=== PATIENT | female | born 1950 | race Caucasian/White ===

== ENCOUNTER 2019-08-27 15:04 | Emergency (ER) | payer MEDICARE ==
--- NOTE | 2019-08-27 15:49 | XRAY ---
Indication: Pain following injury. Comparison: None 3 nonweightbearing views left foot demonstrates tiny heel spurs and a 8 mm well-circumscribed curvilinear calcification anterosuperior to the talus either degenerative versus old injury. No other bony, articular, or soft tissue abnormalities.
--- NOTE | 2019-08-27 15:49 | XRAY ---
Indication: Pain following injury. Comparison: None 3 view left ankle demonstrates tiny heel spurs and a 8 mm well-circumscribed curvilinear calcification anterosuperior to the talus either degenerative versus old injury. No other bony, articular, or soft tissue abnormalities.
[2019-08-27] MEDS ORDERED: TORAdol 30 mg Injection IM ONE (15:53)
[2019-08-27] MEDS ORDERED: TORAdol 30 mg Injection ONE (15:57)
--- NOTE | 2019-08-27 16:21 | ERPHSYRPT ---
- History of Present Illness Time Seen by Provider: 08/27/19 15:20 Source: patient Exam Limitations: no limitations Patient Subjective Stated Complaint: Left foot injury Triage Nursing Assessment: Patient brought back to ED via w/c and transferred to bed with assist of 1. Patient A+O X3. Patient's skin pink, warm and dry. Patient complains of left foot pain after tripping down a step. Patient has small bruise noted to middle of top of foot. Patient complains of constant aching pain 5/10. Pulses noted. Physician History: Patient is a 69-year-old female presents to our ED with complaints of pain to the left foot. Patient states she mis-injury occurred just prior to arrival. Pain described as an ache that is localized to the dorsum of the left foot. Pain worse with movement and palpation. Pain also exacerbated with weightbearing. Pain improved with rest. Patient initially declined pain medication. No other injuries reported. Patient is otherwise healthy. Patient voices no other complaints at this time. Patient's injury was mechanical. It was not associated with any sort of neuro or cardiovascular symptomology. No associated chest pain or shortness of breath. No dizziness. No weakness. Method of Injury: twisted Occurred: just prior to arrival Quality: intermittent Severity of Pain-Max: moderate Severity of Pain-Current: none Lower Extremities Pain: foot: left Modifying Factors: Improves With: movement Associated Symptoms: none, No dizzy, No fainted, No seizure, No popping sensation Allergies/Adverse Reactions: No Known Drug Allergies Allergy (Verified 08/27/19 15:19) Home Medications: No Reportable Medications [No Reported Medications] 08/27/19 [History] Hx Tetanus, Diphtheria Vaccination/Date Given: Yes Hx Influenza Vaccination/Date Given: Yes Hx Pneumococcal Vaccination/Date Given: Yes Immunizations Up to Date: Yes Travel Risk - International Travel Have you traveled outside of the country in past 3 weeks: No Have you or anyone close to you been diagnosed with or: No Do your reside in a community with a known COVID-19 case?: Yes If Yes where:: [facility] - Coronavirus Screening Has patient experienced Coronavirus symptoms: No - Review of Systems Constitutional: No Symptoms, No Fever, No Chills Eyes: No Symptoms Ears, Nose, & Throat: No Symptoms Respiratory: No Symptoms, No Cough, No Dyspnea Cardiac: No Symptoms, No Chest Pain, No Edema, No Syncope Abdominal/Gastrointestinal: No Symptoms, No Abdominal Pain, No Nausea, No Vomiting, No Diarrhea Genitourinary Symptoms: No Symptoms, No Dysuria Musculoskeletal: No Symptoms, Injury, No Back Pain, No Neck Pain Skin: No Symptoms, No Rash Neurological: No Symptoms, No Dizziness, No Focal Weakness, No Headache, No Sensory Changes Psychological: No Symptoms Endocrine: No Symptoms Hematologic/Lymphatic: No Symptoms Immunological/Allergic: No Symptoms All Other Systems: Reviewed and Negative - Past Medical History Pertinent Past Medical History: Yes Neurological History: No Pertinent History ENT History: Other Cardiac History: No Pertinent History Respiratory History: No Pertinent History Endocrine Medical History: No Pertinent History Musculoskeletal History: No Pertinent History GI Medical History: No Pertinent History History: No Pertinent History Psycho-Social History: No Pertinent History Female Reproductive Disorders: No Pertinent History Other Medical History: Pt states she passed out at home. she is wearing a recorder in her chest. She sees Dr. Cook. Pt is hard of hearing and wears bilateral hearing aids. - Past Surgical History Past Surgical History: No Neuro Surgical History: No Pertinent History Cardiac: No Pertinent History, Other Respiratory: No Pertinent History Gastrointestinal: No Pertinent History Genitourinary: No Pertinent History Musculoskeletal: No Pertinent History Female Surgical History: Other Other Surgical History: Pt has had a lumpectomy and a skin cancer removed from her left arm. - Social History Smoking Status: Former smoker Exposure to second hand smoke: No Drug Use: none Patient Lives Alone: No - Nursing Vital Signs Nursing Vital Signs: Initial Vital Signs Temperature 98.0 F 08/27/19 15:12 Pulse Rate 82 08/27/19 15:12 Respiratory Rate 18 08/27/19 15:12 Blood Pressure 118/65 08/27/19 15:12 O2 Sat by Pulse Oximetry 97 08/27/19 15:12 Pain Scale Pain Intensity 5 - Physical Exam General Appearance: alert Eyes, Ears, Nose, Throat Exam: moist mucous membranes Neck Exam: non-tender, supple Cardiovascular/Respiratory Exam: chest non-tender, normal breath sounds, regular rate/rhythm, no respiratory distress Gastrointestinal/Abdominal Exam: non-tender, guarding Back Exam: normal inspection, No vertebral tenderness Hips Exam: bilateral: non-tender, normal inspection, normal range of motion, no evidence of injury Legs Exam: bilateral leg: non-tender, normal inspection, normal range of motion , no evidence of injury Knees Exam: bilateral knee: non-tender, normal inspection, normal range of motion, no evidence of injury Ankle Exam: left ankle: normal inspection, normal range of motion, no evidence of injury, bone tenderness Foot Exam: left foot: ecchymosis, limited range of motion (Range of motion limited due to pain.), pain, soft tissue tenderness, swelling, other (No open or draining lesions. PT DP pulses are palpable. Cap refill less than 2 seconds. Compartments are soft. No subungual hematoma.) Neuro/Tendon Exam: normal sensation, normal motor functions Mental Status Exam: alert, oriented x 3, cooperative Skin Exam: normal color, warm, dry SpO2 Interpretation: normal SpO2: 97 O2 Delivery: Room Air - Course Nursing assessment & vital signs reviewed: No - Radiology Exams Foot X-ray Interpretation: Teleradiologist Report (X-ray foot reveals tiny heel spurs , 8 mm well-circumscribed curvilinear calcification anterior superior to the talus either degenerative versus old injury. No other bony articular soft tissue abnormalities.) Ankle X-ray Interpretation: Teleradiologist Report (Left ankle x-ray demonstrates tiny heel spurs, 8 mm well-circumscribed curvilinear calcification anterior superior to the talus with degenerative versus old injury. No other bony articular or soft tissue abnormalities identified.) Ordered Tests: Active Orders 24 hr Category Date Time Status ANKLE (3 VIEWS) Stat Exams 08/27/19 15:18 Completed FOOT (MINIMUM 3 VIEWS) Stat Exams 08/27/19 15:16 Completed Medication Summary Discontinued Medications Generic Name Dose Route Start Last Admin Trade Name Maykel PRN Reason Stop Dose Admin Ketorolac Tromethamine 30 mg 08/27/19 15:53 08/27/19 15:59 Toradol 30 Mg Injection IM 08/27/19 15:54 30 mg STAT ONE Administration Ketorolac Tromethamine Confirm 08/27/19 15:57 Toradol 30 Mg Injection Administered 08/27/19 15:58 Dose 30 mg .ROUTE .STK-MED ONE - Progress Progress: improved Progress Note: 08/27/19 16:25 Patient initially declined pain medication. Patient then requested pain medication. IM Toradol administered. Patient feels much better. X-rays negative for acute pathology. No fractures or dislocations. Patient's left foot primarily has a left contusion. Possible sprain. Will discharge home. Patient declined crutches. Patient agrees to follow-up with a primary care doctor within 48 hours for reevaluation. Counseled pt/family regarding: diagnosis, need for follow-up, rad results - Departure Departure Disposition: Home Clinical Impression: Foot contusion, Foot sprain Condition: Stable Critical Care Time: No Referrals: JACINDA LARKIN [Primary Care Provider] - Instructions: Foot Sprain (DC), Contusion (DC) Additional Instructions: Discharge/Care Plan RAOUL SCHUSTER was seen on 08/27/19 in the Emergency Room. The patient was counseled regarding Diagnosis,Lab results, Imaging studies, need for follow up and when to return to the Emergency Room. Prescriptions given: Discharge Note I have spoken with the patient and/or caregivers. I have explained the patient' s condition, diagnosis and treatment plan based on the information available to me at this time. I have answered the patient's and/or caregiver's questions and addressed any concerns. The patient and/or caregivers have as good understanding of the patient's diagnosis, condition and treatment plan as can be expected at this point. The vital signs have been stable. The patient's condition is stable and appropriate for discharge from the emergency department. The patient will pursue further outpatient evaluation with the primary care physician or other designated or consulting physician as outlined in the discharge instructions. The patient and/or caregivers are agreeable to this plan of care and follow-up instructions have been explained in detail. The patient and/or caregivers have received these instruction. The patient/and or caregivers are aware that any significant change in condition or worsening of symptoms should prompt an immediate return to this or the closest emergency department or call 911.
[2019-08-27 16:27] VITALS: BP 131/75; PULSE 70; O2SAT 97
== END 2019-08-27 16:35 | disposition home or self-care (01) ==
LOC: ED 15:04
DX: S90.32XA Contusion of left foot, initial encounter (principal); S93.602A Unspecified sprain of left foot, initial encounter; W01.198A Fall on same level from slipping, tripping and stumbling with subsequent striking against other object, initial encounter
CPT/HCPCS: 73610; 73630; 96372; 99284; J1885

== ENCOUNTER 2022-08-08 15:04 | Emergency (ER) | payer MEDICARE ==
--- NOTE | 2022-08-08 15:10 | ERPHSYRPT ---
- History of Present Illness Time Seen by Provider: 08/08/22 15:10 Historian: patient Exam Limitations: no limitations Physician History: This is a 71-year-old white female patient who is status post right knee replacement approximately 2 weeks ago and postoperatively was placed on Percocet pain medicine. That is a new medication for her. In addition, she has not been walking and ambulating as well as often as she normally does. Patient denies abdominal pain but she does complain of constipation and rectal pressure for the last 2 to 3 days. She has tried stool softeners, MiraLAX and prune juice since yesterday without much effect. Patient denies chest pain and she denies shortness of breath. Timing/Duration: day(s) (2 to 3 days) Activities at Onset: none Quality: pressure (Rectal but not abdominal) Pain Radiation: no radiation Severity of Pain-Max: none Severity of Pain-Current: none Modifying Factors: Improves With: nothing Associated Symptoms: other (Constipation and rectal pressure) Previous symptoms: no prior history Allergies/Adverse Reactions: sulfamethoxazole [From Bactrim] Allergy (Verified 08/08/22 15:05) trimethoprim [From Bactrim] Allergy (Verified 08/08/22 15:05) Home Medications: No Reportable Medications [No Reported Medications] 08/27/19 [History] Hx Tetanus, Diphtheria Vaccination/Date Given: Yes Hx Influenza Vaccination/Date Given: Yes Hx Pneumococcal Vaccination/Date Given: Yes Travel Risk - International Travel Have you traveled outside of the country in past 3 weeks: No - Coronavirus Screening Are you exhibiting any of the following symptoms?: No Close contact with a COVID-19 positive Pt in past 14-21 Days: No - Review of Systems Constitutional: No Symptoms Eyes: No Symptoms Ears, Nose, & Throat: No Symptoms Respiratory: No Symptoms Cardiac: No Symptoms Abdominal/Gastrointestinal: Constipation, No Abdominal Pain, No Nausea, No Vomiting Genitourinary Symptoms: No Symptoms Musculoskeletal: No Symptoms Skin: No Symptoms Neurological: No Symptoms Psychological: No Symptoms Endocrine: No Symptoms Hematologic/Lymphatic: No Symptoms Immunological/Allergic: No Symptoms All Other Systems: Reviewed and Negative - Past Medical History Pertinent Past Medical History: Yes Neurological History: No Pertinent History ENT History: Other Cardiac History: No Pertinent History Respiratory History: No Pertinent History Endocrine Medical History: No Pertinent History Musculoskeletal History: Osteoarthritis GI Medical History: No Pertinent History History: No Pertinent History Psycho-Social History: No Pertinent History Female Reproductive Disorders: No Pertinent History Other Medical History: CAROTID BLOCKAGES. - Past Surgical History Past Surgical History: No Neuro Surgical History: No Pertinent History Cardiac: No Pertinent History, Other Respiratory: No Pertinent History Gastrointestinal: No Pertinent History Genitourinary: No Pertinent History Musculoskeletal: No Pertinent History Female Surgical History: Other Other Surgical History: Pt has had a lumpectomy and a skin cancer removed from her left arm. - Social History Smoking Status: Former smoker Exposure to second hand smoke: No Drug Use: none Patient Lives Alone: No - Nursing Vital Signs Nursing Vital Signs: Initial Vital Signs Temperature 97.6 F 08/08/22 15:05 Pulse Rate 74 08/08/22 15:05 Respiratory Rate 18 08/08/22 15:05 Blood Pressure 172/131 08/08/22 15:05 O2 Sat by Pulse Oximetry 97 08/08/22 15:05 Pain Scale Pain Intensity 8 - Physical Exam General Appearance: no apparent distress, alert, anxiety Eye Exam: PERRL/EOMI, eyes nml inspection Ears, Nose, Throat Exam: normal ENT inspection, moist mucous membranes Neck Exam: normal inspection, non-tender, supple, full range of motion Respiratory Exam: normal breath sounds, lungs clear, airway intact, No chest tenderness, No respiratory distress Cardiovascular Exam: regular rate/rhythm, normal heart sounds, normal peripheral pulses Gastrointestinal/Abdomen Exam: soft, normal bowel sounds, No tenderness Pelvic Exam: not done Rectal Exam: not done Back Exam: normal inspection, normal range of motion, No CVA tenderness Extremity Exam: normal inspection, normal range of motion, No pelvis stable Neurologic Exam: alert, oriented x 3, cooperative, 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 I reviewed the impression. This film shows no evidence of bowel obstruction. There is moderate diffuse colonic debris including in the rectum. The patient's medical issue is 1 of low complexity. The level of complexity and the work-up performed was based on review of the patient's past medical history, review of the patient's medication list, review of the patient's drug allergy list, history of present illness and findings on physical examination. The above-stated findings were noted on the KUB that was performed. No laboratory studies are necessary. We will provide the patient with a soapsuds enema in the emergency department. Assuming she has a good response to this intervention, we will discharge the patient to home with instructions to stop her Percocet pain medicine and to use Tylenol for pain control, increase her activity and ambulating, use MiraLAX, prune juice and stool softeners. She is also to follow-up with her primary care provider and orthopedic surgeon tomorrow, 08/09/2022 to make arrangements for follow-up appointment in the next few days. 08/08/22 18:52 Patient had excellent results with the soapsuds enema. She has significantly less rectal pressure. Counseled pt/family regarding: diagnosis, need for follow-up, rad results Medical Desision Making - Independent Historian Additional History obtained from: Child - Diagnostic Testing Radiological Interpretation: Reviewed by me, Teleradiologist Report - Risk of complications Low Risk: Low risk of morbidity from additional dx testing or treatment - Departure Departure Disposition: Home Clinical Impression: Constipation Condition: Stable Critical Care Time: No Referrals: TRACE WALLACE [Primary Care Provider] - Follow up/PCP as directed Additional Instructions: Clear liquids for 12 to 16 hours orally. May use fleets enema tomorrow morning rectally as directed on [id number] product. Continue using stool softeners, MiraLAX and consuming prune juice. Stop your oxycodone/narcotic pain medicine. Use plain Tylenol for pain control. Increase your activity.
--- NOTE | 2022-08-08 16:45 | XRAY ---
Indication: Constipation. Rectal pain. Comparison: None KUB demonstrates moderate diffuse scattered fecal debris including rectum. Previous cholecystotomy. 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
[2022-08-08 19:35] VITALS: BP 142/76; PULSE 70; O2SAT 94
== END 2022-08-08 19:43 | disposition home or self-care (01) ==
LOC: ED 15:04
DX: K59.00 Constipation, unspecified (principal); Z79.891 Long term (current) use of opiate analgesic
CPT/HCPCS: 74018; 99283

== ENCOUNTER 2022-08-12 13:59 | Emergency (ER) | payer MEDICARE ==
--- NOTE | 2022-08-12 14:02 | ERPHSYRPT ---
- History of Present Illness Time Seen by Provider: 08/12/22 14:02 Historian: patient, family (Daughter) Exam Limitations: no limitations Physician History: This is a 72-year-old white female patient of Dr. Saldana who is status post right knee replacement approximately 3 weeks ago. Postoperatively, the patient was placed on Percocet pain medication. Patient was seen in our emergency department on 08/08/2022 by me and was diagnosed with constipation with stool in the left colon and rectum without rectal impaction. This is based on the patient's history and findings on a KUB that was performed on that visit. She underwent a soapsuds enema on that day and had excellent response to her enema. Since her discharge from that visit, she has been taking MiraLAX, stool softeners as well as using prune juice and increasing her activity. She is still feeling as though there is rectal pain and pressure and has not been having normal bowel movements at this point in time. She denies chest pain. She denies shortness of breath. She has no fever. She takes no medications chronically. She has been off of her narcotic pain medicine. Timing/Duration: day(s) (Several) Activities at Onset: none Abdominal Pain Onset Location: other (Rectal pressure) Pain Radiation: no radiation Severity of Pain-Max: mild Severity of Pain-Current: mild Modifying Factors: Improves With: other Associated Symptoms: other (Constipation and rectal pressure), No diarrhea, No nausea, No vomiting Previous symptoms: same symptoms as today, recently seen, recently treated Allergies/Adverse Reactions: sulfamethoxazole [From Bactrim] Allergy (Verified 08/08/22 15:05) trimethoprim [From Bactrim] Allergy (Verified 08/08/22 15:05) Home Medications: Furosemide 20 mg [Lasix 20 mg] 20 mg PO DAILY 08/12/22 [History] Hx Tetanus, Diphtheria Vaccination/Date Given: Yes Hx Influenza Vaccination/Date Given: Yes Hx Pneumococcal Vaccination/Date Given: Yes Travel Risk - International Travel Have you traveled outside of the country in past 3 weeks: No - Coronavirus Screening Are you exhibiting any of the following symptoms?: No Close contact with a COVID-19 positive Pt in past 14-21 Days: No - Vaccine Status Have you recieved a Covid-19 vaccination: No - Past Medical History Pertinent Past Medical History: Yes Neurological History: No Pertinent History ENT History: Other Cardiac History: No Pertinent History Respiratory History: No Pertinent History Endocrine Medical History: No Pertinent History Musculoskeletal History: Osteoarthritis GI Medical History: No Pertinent History History: No Pertinent History Psycho-Social History: No Pertinent History Female Reproductive Disorders: No Pertinent History Other Medical History: CAROTID BLOCKAGES. - Past Surgical History Past Surgical History: No Neuro Surgical History: No Pertinent History Cardiac: No Pertinent History, Other Respiratory: No Pertinent History Gastrointestinal: No Pertinent History Genitourinary: No Pertinent History Musculoskeletal: No Pertinent History Female Surgical History: Other Other Surgical History: Pt has had a lumpectomy and a skin cancer removed from her left arm. - Social History Smoking Status: Former smoker Exposure to second hand smoke: No Drug Use: none Patient Lives Alone: No - Nursing Vital Signs Nursing Vital Signs: Initial Vital Signs Temperature 98.7 F 08/12/22 14:04 Pulse Rate 90 08/12/22 14:04 Respiratory Rate 22 08/12/22 14:04 Blood Pressure 154/86 08/12/22 14:04 O2 Sat by Pulse Oximetry 100 08/12/22 14:04 Pain Scale Pain Intensity 2 - Physical Exam General Appearance: no apparent distress, alert, anxiety Eye Exam: PERRL/EOMI, eyes nml inspection Ears, Nose, Throat Exam: normal ENT inspection, moist mucous membranes Neck Exam: normal inspection, non-tender, supple, full range of motion Respiratory Exam: normal breath sounds, lungs clear, airway intact, No chest tenderness, No respiratory distress Cardiovascular Exam: regular rate/rhythm, normal heart sounds, normal peripheral pulses Gastrointestinal/Abdomen Exam: soft, normal bowel sounds, No tenderness Pelvic Exam: not done Back Exam: normal inspection, normal range of motion, No CVA tenderness, No vertebral tenderness Extremity Exam: normal inspection, normal range of motion, pelvis stable Neurologic Exam: alert, oriented x 3, cooperative, escort patients II-XII nml as tested, normal mood/affect, nml cerebellar function, nml station & gait, sensation nml Skin Exam: normal color, warm, dry Lymphatic Exam: No adenopathy SpO2 Interpretation: normal O2 Delivery: Room Air - Course Nursing assessment & vital signs reviewed: Yes Ordered Tests: Active Orders 24 hr Category Date Time Status IV Insertion STAT Care 08/12/22 14:25 Active ABDOMEN AND PELVIS W/0 CONTRAS [CT] Stat Exams 08/12/22 14:25 Completed CBC W DIFF Stat Lab 08/12/22 14:28 Completed CMP Stat Lab 08/12/22 14:28 Completed UA W/RFX UR CULTURE Stat Lab 08/12/22 14:25 Ordered Medication Summary Discontinued Medications Generic Name Dose Route Start Last Admin Trade Name Andreaq PRN Reason Stop Dose Admin Methylprednisolone Sodium 0 mg 08/12/22 15:26 Succinate 40 mg/ Sterile Water IV 08/12/22 15:27 1 ml STAT STA Doxycycline Hyclate 100 mg 08/12/22 15:24 Doxycycline Hyclate 100 Mg Tablet PO 08/12/22 15:25 STAT ONE Sodium Chloride 1,000 mls @ 999 mls/hr 08/12/22 14:25 08/12/22 14:44 Sodium Chloride 0.9% 1000 Ml IV 08/12/22 15:25 999 mls/hr .Q1H1M STA Administration Sodium Chloride Confirm 08/12/22 14:43 Sodium Chloride 0.9% 1000 Ml Administered 08/12/22 14:44 Dose 1,000 mls @ ud .ROUTE .STK-MED ONE Metronidazole 500 mg 08/12/22 15:24 Metronidazole 500 Mg Tablet PO 08/12/22 15:25 STAT ONE Lab/Rad Data: Laboratory Result Diagrams 08/12/22 14:28 08/12/22 14:28 Laboratory Results 08/12/22 08/12/22 Range/Units 14:28 14:28 WBC 7.0 (4.0-10.5) x10^3/uL RBC 3.86 L (4.1-5.4) x10^6/uL Hgb 11.9 L (12.0-16.0) g/dL Hct 36.9 (35-47) % MCV 95.6 (78-100) fL MCH 30.8 (26-32) pg MCHC 32.2 (32-36) g/dL RDW 12.5 (11.5-14.0) % Plt Count 392 (150-450) x10^3/uL MPV 9.3 (7.5-11.0) fL Gran % 60.0 (36.0-66.0) % Immature Gran % (Auto) 0.6 H (0.00-0.4) % Nucleat RBC Rel Count 0.0 (0.00-0.1) % Eos # (Auto) 0.26 (0-0.5) x10^3/uL Immature Gran # (Auto) 0.04 H (0.00-0.03) x10^3u/L Absolute Lymphs (auto) 2.01 (1.0-4.6) x10^3/uL Absolute Monos (auto) 0.43 (0.0-1.3) x10^3/uL Absolute Nucleated RBC 0.00 (0.00-0.01) x10^3u/L Lymphocytes % 28.7 (24.0-44.0) % Monocytes % 6.1 (0.0-12.0) % Eosinophils % 3.7 (0.00-5.0) % Basophils % 0.9 (0.0-0.4) % Absolute Granulocytes 4.20 (1.4-6.9) x10^3/uL Basophils # 0.06 (0-0.4) x10^3/uL Sodium 139 (137-145) mmol/L Potassium 3.8 (3.5-5.1) mmol/L Chloride 103 (98-107) mmol/L Carbon Dioxide 24 (22-30) mmol/L Anion Gap 16.1 H (5-15) MEQ/L BUN 13 (7-17) mg/dL Creatinine 0.84 (0.52-1.04) mg/dL Estimated GFR > 60.0 ML/MIN Glucose 155 H (74-106) mg/dL Calcium 9.1 (8.4-10.2) mg/dL Total Bilirubin 0.50 (0.2-1.3) mg/dL AST 33 (14-36) U/L ALT 29 (0-35) U/L Alkaline Phosphatase 88 (38-126) U/L Serum Total Protein 7.4 (6.3-8.2) g/dL Albumin 4.3 (3.5-5.0) g/dL - Progress Progress: improved, pain not gone completely, re-examined Progress Note: 08/12/22 15:29 CAT scan of the abdomen and pelvis shows a picture consistent with proctitis. There is no evidence of colonic or fecal debris. There is no evidence of any bowel obstruction. This patient's medical issue is 1 of moderate complexity. The level of complexity and the work-up performed were based on the patient's past medical history, review of the patient's medication list, review of the patient's drug allergy list, history of present illness and findings on physical examination. Work-up includes placement of intravenous line, infusion of intravenous fluid, CBC, CMP, urinalysis and CAT scan of the abdomen pelvis. I reviewed the results of the above work-up. The patient has proctitis without evidence of any col onic or rectal debris. We will treat her for proctitis. Patient will avoid using enemas or rectal suppositories. She will drink plenty of fluids use MiraLAX and use stool softeners and prune juice. Patient is to call her primary care doctor today to make arrangements for follow-up appointment. We will also have her do sitz bath with Epsom salts. We will write for outpatient prednisone, doxycycline and Flagyl. 08/12/22 15:31 Counseled pt/family regarding: lab results, diagnosis, need for follow-up, rad results Medical Desision Making - Independent Historian Additional History obtained from: Child (Daughter) - Diagnostic Testing Diagnostic test were ordered, analyzed, and reviewed by me: Yes Radiological Interpretation: Reviewed by me, Teleradiologist Report - Risk of complications The pt has a mod risk of morbidity or mortality based on: Need for prescription drug management - Departure Departure Disposition: Home Clinical Impression: Proctitis Condition: Stable Critical Care Time: No Referrals: TRACE SALDANA [Primary Care Provider] - Follow up/PCP as directed Additional Instructions: Sitz bath 2-3 times a day with Epsom salts. Avoid enemas and suppositories. Continue increasing your ambulation. May continue to use daily MiraLAX and stool softeners. Take your antibiotics and steroids as prescribed. Call your primary care provider today to make arranges for follow-up appointment the next few days for reevaluation. Prescriptions: Prednisone 10 mg [Deltasone 10 mg] 10 mg PO TID #12 tablet Metronidazole 500 mg [Flagyl 500 MG] 500 mg PO TID #21 tablet Doxycycline Hyclate 100 mg [Vibramycin 100 MG] 100 mg PO BID #14 tab
[2022-08-12] MEDS ORDERED: Sodium Chloride 0.9% 1000 ML 1,000 ML IV STA (14:25)
[2022-08-12 14:36] LABS: BASOPHIL % 0.9 % (0.0-0.4); Basophil (Absolute #) 0.06 x10^3/uL (0-0.4); Eosinophil % 3.7 % (0.00-5.0); Eosinophil (Absolute #) 0.26 x10^3/uL (0-0.5); Hematocrit 36.9 % (35-47); Hemoglobin 11.9 g/dL (12.0-16.0); IMMATURE GRAN # 0.04 x10^3u/L (0.00-0.03); IMMATURE GRAN % 0.6 % (0.00-0.4); Lymphocyte (Absolute #) 2.01 x10^3/uL (1.0-4.6); Lymphocytes % 28.7 % (24.0-44.0); Mean Cell Volume 95.6 fL (78-100); Mean Corpuscular Hemoglobin 30.8 pg (26-32); Mean Corpuscular Hgb Concent. 32.2 g/dL (32-36); Mean Platelet Volume 9.3 fL (7.5-11.0); Monocyte (Absolute #) 0.43 x10^3/uL (0.0-1.3); Monocytes % 6.1 % (0.0-12.0); Platelet Count 392 x10^3/uL (150-450); Red Blood Count 3.86 x10^6/uL (4.1-5.4); Red Cell Distribution Width 12.5 % (11.5-14.0)
[2022-08-12] MEDS ORDERED: Sodium Chloride 0.9% 1000 ML 1,000 ML ONE (14:43)
[2022-08-12 14:50] LABS: ALBUMIN 4.3 g/dL (3.5-5.0); ALKALINE PHOSPHATASE 88 U/L (38-126); ANION GAP 16.1 MEQ/L (5-15); BLOOD UREA NITROGEN 13 mg/dL (7-17); CHLORIDE 103 mmol/L (98-107); Calcium 9.1 mg/dL (8.4-10.2); Carbon Dioxide 24 mmol/L (22-30); Creatinine 1 0.84 mg/dL (0.52-1.04); EST GLOMERULAR FILTRATION RATE > 60.0 ML/MIN; Glucose 155 mg/dL (74-106); Potassium 3.8 mmol/L (3.5-5.1); SGOT/AST 33 U/L (14-36); SGPT/ALT 29 U/L (0-35); SODIUM 139 mmol/L (137-145); Total Protein 7.4 g/dL (6.3-8.2)
[2022-08-12 15:15] VITALS: O2SAT 98
--- NOTE | 2022-08-12 15:16 | XRAY ---
Indication: Constipation. Multiple contiguous axial images obtained through the abdomen and pelvis without contrast. Comparison: None Lung bases demonstrates minimal subsegmental atelectasis/scarring. Heart not enlarged. Noncontrasted stomach and bowel loops appear nonobstructed. Normal appendix. Little to no colonic fecal debris. Rectum/anus demonstrates mild circumferential wall thickening with stranding favoring proctitis. No free fluid/air. Incidental tiny hepatic/splenic calcified granulomas and cholecystectomy. Remaining liver, pancreas, spleen, adrenal glands, kidneys, ureters, bladder, and uterus are unremarkable for noncontrast exam. Mild scattered aortoiliac calcifications without AAA. 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 Impression: 1. CT findings as detailed favoring proctitis. 2. Incidental chronic findings including arteriosclerotic disease, chronic bony findings, and old granulomatous disease.
[2022-08-12] MEDS ORDERED: Flagyl 500 MG PO ONE (15:24)
[2022-08-12] MEDS ORDERED: Vibramycin 100 MG PO ONE (15:24)
[2022-08-12] MEDS ORDERED: solu-MEDROL 40 MG, Sterile H2O 10 ml 1 ML IV STA ×2 (15:26)
[2022-08-12] MEDS ORDERED: Sterile H2O 10 ml IJ ONE (15:31)
[2022-08-12] MEDS ORDERED: Flagyl 500 MG ONE (15:31)
[2022-08-12] MEDS ORDERED: solu-MEDROL ONE (15:31)
[2022-08-12] MEDS ORDERED: Vibramycin 100 MG ONE (15:31)
[2022-08-12 16:12] VITALS: BP 147/76; PULSE 74
== END 2022-08-12 16:13 | disposition home or self-care (01) ==
LOC: ED 13:59
DX: K62.89 Other specified diseases of anus and rectum (principal); Z79.899 Other long term (current) drug therapy; Z79.52 Long term (current) use of systemic steroids; Z28.310 Unvaccinated for COVID-19
CPT/HCPCS: 36000; 36415; 74176; 80053; 85025; 96360; 96374; 99284; J2920; A9270-GY

== ENCOUNTER 2023-01-10 07:49 | Day surgery (SDC) | payer MEDICARE ==
[2023-01-10] MEDS ORDERED: Epinephrine Preservative Free 1 MG/ML IJ ONE (07:50)
[2023-01-10] MEDS ORDERED: NON-FORMULARY ITEM OP ONE (08:00)
[2023-01-10] MEDS ORDERED: cefUROXime sodium 0.005 GM in Sodium Chloride Flush 30 ML*** 0.5 ML IJ ONE (08:00)
[2023-01-10] MEDS ORDERED: Lactated Ringers 1,000 ML IV SCH (08:00)
[2023-01-10] MEDS ORDERED: TETRACAINE 0.5% STERI-UNIT SOL OP ONE (08:00)
[2023-01-10] MEDS ORDERED: Ak-Dilate OPHTHALMIC*** 1.065 ML, Cyclogyl 1% OPHTH SOL 1.065 ML, GATIFLOXACIN 0.5% OPH... OP ONE ×4 (08:00)
[2023-01-10] MEDS ORDERED: BETADINE 5% OPHTHALMIC 30 ML OP ONE (08:00)
[2023-01-10] MEDS ORDERED: Lactated Ringers 1,000 ML IV ONE (08:41)
[2023-01-10] MEDS: TETRACAINE 0.5% STERI-UNIT SOL OP ONE ×2 (09:15→09:41)
[2023-01-10] MEDS ORDERED: Zofran 4 MG/2 ML VIAL IV PRN (10:00)
[2023-01-10] MEDS ORDERED: DIPRIVAN 200 MG/20 ML IV ONE (10:36)
[2023-01-10] MEDS ORDERED: SUBLIMAZE 100 MCG/2 ML ONE (10:50)
[2023-01-10 11:10] VITALS: BP 119/64; PULSE 66; RESP 16; TEMP 97.9; O2SAT 95
== END 2023-01-10 11:16 | disposition home or self-care (01) ==
LOC: SDC 07:49
PROVIDERS: ATTEND Ophthalmology
DX: H25.811 Combined forms of age-related cataract, right eye (principal)
CPT/HCPCS: C1780; J0171; J2704; J3010; A9270-GY

== ENCOUNTER 2023-03-29 09:46 | Emergency (ER) | payer MEDICARE ==
--- NOTE | 2023-03-29 09:51 | ERPHSYRPT ---
- History of Present Illness Time Seen by Provider: 03/29/23 09:51 Source: patient, family Exam Limitations: no limitations Physician History: This is a 72-year-old white female patient of Dr. Saldana who woke up at 5:00 this morning and went to take a shower. Patient states that she felt off. She did not feel like she was herself and felt as though she was "flying". She was in the shower and then fell out of the shower onto her right shoulder and right knee. She presents with pain in her right shoulder and right knee. She does not have a headache. She states that she recalls all the events but she did not hit her head. Patient does not have chest pain. Patient does not have shortness of breath. Patient does not have abdominal pain. Patient has a hist ory of peripheral vascular disease (carotid issues), osteoarthritis, hypertension, hyperlipidemia and gastroesophageal reflux disease. Patient is not on any new medications. Occurred: just prior to arrival Reason for Fall: fell from standing pos Injuries/Pain Location: upper extremity (Right shoulder), lower extremity (Right knee) Loss of Consciousness: no loss of consciousness Quality: aching Severity of Pain-Max: mild Severity of Pain-Current: mild Modifying Factors: Improves With: movement Associated Symptoms (Fall): denies symptoms Allergies/Adverse Reactions: sulfamethoxazole [From Bactrim] Allergy (Verified 01/10/23 08:25) trimethoprim [From Bactrim] Allergy (Verified 01/10/23 08:25) oxycodone Adverse Reaction (Verified 03/29/23 09:56) Home Medications: Furosemide 20 mg [Lasix 20 mg] 20 mg PO DAILY PRN 08/12/22 [History] Buspirone HCl 5 mg [Buspar 5 mg] 5 mg PO BID 01/02/23 [History] Potassium Chloride 10 meq PO HS 01/02/23 [History] Rosuvastatin Calcium 20 mg PO HS 01/02/23 [History] Aspirin EC 81 mg [Ecotrin 81 mg] 81 mg PO HS 03/29/23 [History] Metoprolol Succinate 25 mg Xl* [Toprol-Xl 25MG Tablets] 25 mg PO HS 03/29/23 [History] Omeprazole 40 mg PO HS 03/29/23 [History] Hx Tetanus, Diphtheria Vaccination/Date Given: Yes Hx Influenza Vaccination/Date Given: Yes Hx Pneumococcal Vaccination/Date Given: Yes Travel Risk - International Travel Have you traveled outside of the country in past 3 weeks: No - Coronavirus Screening Are you exhibiting any of the following symptoms?: No Close contact with a COVID-19 positive Pt in past 14-21 Days: No - Vaccine Status Have you recieved a Covid-19 vaccination: No - Review of Systems Constitutional: No Symptoms Eyes: No Symptoms Ears, Nose, & Throat: No Symptoms Respiratory: No Symptoms Cardiac: No Symptoms Abdominal/Gastrointestinal: No Symptoms Genitourinary Symptoms: No Symptoms Musculoskeletal: Fall, Injury (Right shoulder and right knee) Skin: No Symptoms Neurological: No Symptoms Psychological: No Symptoms Endocrine: No Symptoms Hematologic/Lymphatic: No Symptoms Immunological/Allergic: No Symptoms All Other Systems: Reviewed and Negative - Past Medical History Pertinent Past Medical History: Yes Neurological History: No Pertinent History ENT History: Other Cardiac History: No Pertinent History Respiratory History: No Pertinent History Endocrine Medical History: No Pertinent History Musculoskeletal History: Osteoarthritis GI Medical History: No Pertinent History History: No Pertinent History Psycho-Social History: No Pertinent History Female Reproductive Disorders: No Pertinent History Other Medical History: CAROTID BLOCKAGES. - Past Surgical History Past Surgical History: Yes Neuro Surgical History: No Pertinent History Cardiac: No Pertinent History, Other Respiratory: No Pertinent History Gastrointestinal: No Pertinent History Genitourinary: No Pertinent History Musculoskeletal: No Pertinent History Female Surgical History: Other Other Surgical History: Pt has had a lumpectomy and a skin cancer removed from her left arm. knee surgery - Social History Smoking Status: Former smoker Exposure to second hand smoke: No Drug Use: none Patient Lives Alone: No - Nursing Vital Signs Nursing Vital Signs: Initial Vital Signs Pulse Rate 66 03/29/23 09:53 Respiratory Rate 15 03/29/23 09:53 Blood Pressure 156/57 03/29/23 09:53 O2 Sat by Pulse Oximetry 99 03/29/23 09:53 Pain Scale Pain Intensity 0 - Gonsalo Coma Score Best Eye Response (Gonsalo): (4) open spontaneously Best Verbal Response ([place]anelle): (5) oriented Best Motor Response (Gonsalo): (6) obeys commands [place] Total: 15 - Physical Exam General Appearance: no apparent distress, alert Head Injury: no evidence of injury Eye Exam: PERRL/EOMI, eyes nml inspection ENT Exam: airway nml Neck Exam: supple, trachea midline, full range of motion, normal alignment, normal inspection Respiratory/Chest Exam: normal breath sounds, No chest tenderness, No respiratory distress, No ecchymosis, No crepitus Cardiovascular Exam: normal heart sounds, normal peripheral pulses, No regular rate/rhythm Gastrointestinal Exam: soft, normal bowel sounds, No tenderness Rectal Exam: not done Back Exam: normal inspection, normal range of motion, No CVA tenderness, No vertebral tenderness Extremity Exam: normal inspection, normal range of motion, pelvis stable Neurologic Exam: alert, oriented x 3, cooperative, bin operator II-XII nml as tested, normal mood/affect, nml cerebellar function, nml station & gait, sensation nml Skin Exam: normal color, warm, dry SpO2 Interpretation: normal O2 Delivery: Room Air - Course Nursing assessment & vital signs reviewed: Yes EKG Interpreted by Me: RATE (63), Sinus Rhythm, NORMAL AXIS, NORMAL INTERVALS, N ORMAL QRS, NORMAL ST-T, Other (No acute ischemic changes on today's twelve-lead EKG.) Ordered Tests: Active Orders 24 hr Category Date Time Status EKG-ER Only STAT Care 03/29/23 10:24 Active IV Insertion STAT Care 03/29/23 10:24 Active Pulse Oximetry (ED) STAT Care 03/29/23 10:24 Active HEAD WITHOUT CONTRAST [CT] Stat Exams 03/29/23 10:25 Completed KNEE (3 VIEWS) Stat Exams 03/29/23 10:27 Completed SHOULDER Stat Exams 03/29/23 10:27 Completed CBC W DIFF Stat Lab 03/29/23 10:52 Completed CMP Stat Lab 03/29/23 10:52 Completed MAGNESIUM Stat Lab 03/29/23 10:52 Completed TROPONIN Q4H Lab 03/29/23 10:52 Completed TROPONIN Q4H Lab 03/29/23 10:52 Received TROPONIN Q4H Lab 03/29/23 18:30 Ordered UA W/RFX UR CULTURE Stat Lab 03/29/23 10:36 Completed Medication Summary Discontinued Medications Generic Name Dose Route Start Last Admin Trade Name Freq PRN Reason Stop Dose Admin Sodium Chloride 500 mls @ 500 mls/hr 03/29/23 10:28 Sodium Chloride 0.9% 500 Ml IV 03/29/23 11:27 .Q1H ONE Lab/Rad Data: Laboratory Result Diagrams 03/29/23 10:52 03/29/23 10:52 Laboratory Results 03/29/23 03/29/23 03/29/23 Range/Units 10:52 10:52 10:52 WBC 5.8 (4.0-10.5) x10^3/uL RBC 4.07 L (4.1-5.4) x10^6/uL Hgb 12.7 (12.0-16.0) g/dL Hct 38.6 (35-47) % MCV 94.8 (78-100) fL MCH 31.2 (26-32) pg MCHC 32.9 (32-36) g/dL RDW 12.1 (11.5-14.0) % Plt Count 241 (150-450) x10^3/uL MPV 9.8 (7.5-11.0) fL Gran % 54.0 (36.0-66.0) % Immature Gran % (Auto) 0.2 (0.00-0.4) % Nucleat RBC Rel Count 0.0 (0.00-0.1) % Eos # (Auto) 0.14 (0-0.5) x10^3/uL Immature Gran # (Auto) 0.01 (0.00-0.03) x10^3u/L Absolute Lymphs (auto) 2.14 (1.0-4.6) x10^3/uL Absolute Monos (auto) 0.34 (0.0-1.3) x10^3/uL Absolute Nucleated RBC 0.00 (0.00-0.01) x10^3u/L Lymphocytes % 37.0 (24.0-44.0) % Monocytes % 5.9 (0.0-12.0) % Eosinophils % 2.4 (0.00-5.0) % Basophils % 0.5 (0.0-0.4) % Absolute Granulocytes 3.13 (1.4-6.9) x10^3/uL Basophils # 0.03 (0-0.4) x10^3/uL Sodium 139 (137-145) mmol/L Potassium 3.7 (3.5-5.1) mmol/L Chloride 103 (98-107) mmol/L Carbon Dioxide 27 (22-30) mmol/L Anion Gap 12.1 (5-15) MEQ/L BUN 16 (7-17) mg/dL Creatinine 1.01 (0.52-1.04) mg/dL Estimated GFR 58.8 ML/MIN Glucose 140 H (74-106) mg/dL Calcium 9.2 (8.4-10.2) mg/dL Magnesium 2.1 (1.6-2.3) mg/dL Total Bilirubin 0.50 (0.2-1.3) mg/dL AST 30 (14-36) U/L ALT 17 (0-35) U/L Alkaline Phosphatase 62 (38-126) U/L Troponin I < 0.012 (0.000-0.034) ng/mL Serum Total Protein 6.9 (6.3-8.2) g/dL Albumin 4.1 (3.5-5.0) g/dL Urine Color (Yellow) Urine Appearance (Clear) Urine pH (4.6-8.0) Ur Specific [place] (1.005-1.030) Urine Protein (Negative) Urine Glucose (UA) (Negative) mg/dL Urine Ketones (Negative) Urine Blood (Negative) Urine Nitrite (Negative) Urine Bilirubin (Negative) Urine Urobilinogen (0.2) mg/dL Ur Leukocyte Esterase (Negative) U Hyaline Cast (Auto) (0-2) /LPF Urine Microscopic RBC (0-5) /HPF Urine Microscopic WBC (0-5) /HPF Ur Epithelial Cells (None Seen) /HPF Urine Bacteria (None Seen) /HPF Urine Culture Reflexed (NO) 03/29/23 Range/Units 10:36 WBC (4.0-10.5) x10^3/uL RBC (4.1-5.4) x10^6/uL Hgb (12.0-16.0) g/dL Hct (35-47) % MCV (78-100) fL MCH (26-32) pg MCHC (32-36) g/dL RDW (11.5-14.0) % Plt Count (150-450) x10^3/uL MPV (7.5-11.0) fL Gran % (36.0-66.0) % Immature Gran % (Auto) (0.00-0.4) % Nucleat RBC Rel Count (0.00-0.1) % Eos # (Auto) (0-0.5) x10^3/uL Immature Gran # (Auto) (0.00-0.03) x10^3u/L Absolute Lymphs (auto) (1.0-4.6) x10^3/uL Absolute Monos (auto) (0.0-1.3) x10^3/uL Absolute Nucleated RBC (0.00-0.01) x10^3u/L Lymphocytes % (24.0-44.0) % Monocytes % (0.0-12.0) % Eosinophils % (0.00-5.0) % Basophils % (0.0-0.4) % Absolute Granulocytes (1.4-6.9) x10^3/uL Basophils # (0-0.4) x10^3/uL Sodium (137-145) mmol/L Potassium (3.5-5.1) mmol/L Chloride (98-107) mmol/L Carbon Dioxide (22-30) mmol/L Anion Gap (5-15) MEQ/L BUN (7-17) mg/dL Creatinine (0.52-1.04) mg/dL Estimated GFR ML/MIN Glucose (74-106) mg/dL Calcium (8.4-10.2) mg/dL Magnesium (1.6-2.3) mg/dL Total Bilirubin (0.2-1.3) mg/dL AST (14-36) U/L ALT (0-35) U/L Alkaline Phosphatase (38-126) U/L Troponin I (0.000-0.034) ng/mL Serum Total Protein (6.3-8.2) g/dL Albumin (3.5-5.0) g/dL Urine Color Yellow (Yellow) Urine Appearance Clear (Clear) Urine pH 6.0 (4.6-8.0) Ur Specific [place] 1.015 (1.005-1.030) Urine Protein Negative (Negative) Urine Glucose (UA) Negative (Negative) mg/dL Urine Ketones Negative (Negative) Urine Blood Trace (Negative) Urine Nitrite Negative (Negative) Urine Bilirubin Negative (Negative) Urine Urobilinogen 1.0 A (0.2) mg/dL Ur Leukocyte Esterase Negative (Negative) U Hyaline Cast (Auto) NONE SEEN (0-2) /LPF Urine Microscopic RBC 3-5 (0-5) /HPF Urine Microscopic WBC 0-2 (0-5) /HPF Ur Epithelial Cells None Seen (None Seen) /HPF Urine Bacteria None Seen (None Seen) /HPF Urine Culture Reflexed NO (NO) - Progress Progress Note: 03/29/23 10:33 This patient's medical issue is 1 of moderate complexity. The level of compl exity in the workup performed is based on review of the patient's past medical history, review of the patient's medication list, review the patient's drug allergy list, history present illness and physical findings on examination. The workup in this patient includes placement of an intravenous line, infusion normal saline solution, CBC, CMP, magnesium level, troponin level, urinalysis and CT scan of the head. 03/29/23 12:15 I interpreted the laboratory data results. There is no evidence of any acute or emergent findings based on laboratory data results. All the x-rays were interpreted by the radiologist and I reviewed the impression. CT scan of the head without contrast shows a normal head CT without contrast. Right shoulder x-ray shows degenerative changes without evidence of acute fra cture or dislocation. X-ray of the right knee is negative for any acute fracture or dislocation. Counseled pt/family regarding: lab results, diagnosis, rad results Medical Desision Making - Independent Historian Additional History obtained from: Family - Diagnostic Testing Diagnostic test were ordered, analyzed, and reviewed by me: Yes Radiological Interpretation: Reviewed by me, Teleradiologist Report - Risk of complications Low Risk: Low risk of morbidity from additional dx testing or treatment - Departure Departure Disposition: Home Clinical Impression: Fall with no significant injury Condition: Stable Critical Care Time: No Referrals: TRACE SALDANA [Primary Care Provider] - Follow up/PCP as directed Additional Instructions: Drink plenty of fluids. Take your medications as prescribed. Call your primary care provider today to make arrangements for follow-up appointment for further evaluation and management in the next 3 to 5 days.
[2023-03-29] MEDS ORDERED: Sodium Chloride 0.9% 500 ML 500 ML IV ONE ×2 (10:28→12:16)
[2023-03-29 11:00] LABS: Absolute Neutrophil Ct (ANC) 3.13 x10^3/uL (1.4-6.9); BASOPHIL % 0.5 % (0.0-0.4); Basophil (Absolute #) 0.03 x10^3/uL (0-0.4); Eosinophil % 2.4 % (0.00-5.0); Eosinophil (Absolute #) 0.14 x10^3/uL (0-0.5); Hematocrit 38.6 % (35-47); Hemoglobin 12.7 g/dL (12.0-16.0); IMMATURE GRAN # 0.01 x10^3u/L (0.00-0.03); IMMATURE GRAN % 0.2 % (0.00-0.4); Lymphocyte (Absolute #) 2.14 x10^3/uL (1.0-4.6); Mean Cell Volume 94.8 fL (78-100); Mean Corpuscular Hemoglobin 31.2 pg (26-32); Mean Corpuscular Hgb Concent. 32.9 g/dL (32-36); Mean Platelet Volume 9.8 fL (7.5-11.0); Monocyte (Absolute #) 0.34 x10^3/uL (0.0-1.3); Monocytes % 5.9 % (0.0-12.0); Platelet Count 241 x10^3/uL (150-450); Red Blood Count 4.07 x10^6/uL (4.1-5.4); Red Cell Distribution Width 12.1 % (11.5-14.0); White Blood Count 5.8 x10^3/uL (4.0-10.5)
[2023-03-29 11:05] LABS: Appearance Clear (Clear); Bacteria None Seen /HPF (None Seen); Bilirubin Negative (Negative); Blood Trace (Negative); Epithelial Cells None Seen /HPF (None Seen); Glucose, Urine Negative (Negative); Hyaline Casts NONE SEEN /LPF (0-2); Ketones Negative (Negative); Leukocyte Esterase Negative (Negative); Nitrite Negative (Negative); Protein,Urine Dip Negative (Negative); Specific Gravity 1.015 (1.005-1.030); WBC 0-2 /HPF (0-5)
[2023-03-29 11:07] LABS: ADD URINE CULTURE? NO (NO)
[2023-03-29 11:11] LABS: ALBUMIN 4.1 g/dL (3.5-5.0); ANION GAP 12.1 MEQ/L (5-15); BILIRUBIN,TOTAL 0.5 mg/dL (0.2-1.3); Calcium 9.2 mg/dL (8.4-10.2); Creatinine 1 1.01 mg/dL (0.52-1.04); EST GLOMERULAR FILTRATION RATE 58.8 ML/MIN; MAGNESIUM 2.1 mg/dL (1.6-2.3); Potassium 3.7 mmol/L (3.5-5.1); Total Protein 6.9 g/dL (6.3-8.2)
--- NOTE | 2023-03-29 11:20 | XRAY ---
Indication: Near syncope with fall. Multiple contiguous axial images obtained through the head without contrast. Comparison: March 01, 2014 Normal appearing brain parenchyma, ventricles, and bony calvarium for patient's age. Visualized paranasal sinuses and mastoid air cells are clear. Impression: Continued normal CT head without contrast exam.
--- NOTE | 2023-03-29 11:25 | XRAY ---
Indication: Pain following fall. Comparison: None 3 view right shoulder demonstrates osteopenia, mild AC degenerative changes, and and a few left hilum calcified nodes. No other bony, articular, or soft tissue abnormalities.
--- NOTE | 2023-03-29 11:26 | XRAY ---
Indication: Pain following fall. Comparison: None 3 view right knee demonstrates osteopenia and total knee arthroplasty with intact prosthesis. No other bony, articular, or soft tissue abnormalities.
[2023-03-29 12:15] VITALS: BP 109/58; PULSE 61; RESP 15; O2SAT 98
== END 2023-03-29 12:54 | disposition home or self-care (01) ==
LOC: ED 09:46
DX: Z04.3 Encounter for examination and observation following other accident (principal); M25.511 Pain in right shoulder; M25.561 Pain in right knee; I10 Essential (primary) hypertension; E78.5 Hyperlipidemia, unspecified; Z79.899 Other long term (current) drug therapy; Z28.310 Unvaccinated for COVID-19
CPT/HCPCS: 36000; 36415; 70450; 73030; 73562; 80053; 81001; 83735; 84484; 85025; 93005; 94760; 99284

== ENCOUNTER 2023-11-13 09:13 | Day surgery (SDC) | payer MEDICARE ==
--- NOTE | 2023-11-12 13:14 | HP ---
HISTORY AND PHYSICAL HISTORY OF PRESENT ILLNESS: Patient has been having problems with choking upper esophagus, solids and liquids for awhile. No prior EGD. Family history negative for esophageal cancer. PAST MEDICAL HISTORY: Hypertension. PAST SURGICAL HISTORY: Had a right knee arthroplasty in the past. Had bilateral tubal in the past. FAMILY HISTORY: Heart disease. Negative for esophageal cancer. SOCIAL HISTORY: No smoking. No alcohol abuse. MEDICATIONS: Metoprolol and aspirin. ALLERGIES: Bactrim. REVIEW OF SYSTEMS: Twelve systems reviewed. No chest pain or palpitations. Other systems negative or noncontributory as above and per preadmission questionnaire. PHYSICAL EXAMINATION: GENERAL: Height 5 feet 6 inches. BMI 27.6. No acute distress. HEENT: Sclerae nonicteric. NECK: No JVD. CHEST: Equal excursion, nonlabored breathing. CARDIOVASCULAR: Regular rate and rhythm. ABDOMEN: Soft. EXTREMITIES: No cyanosis or edema. NEUROLOGIC: Alert and oriented, moving all extremities symmetrically. PSYCHIATRIC: Appropriate mood and affect. IMPRESSION: Dysphagia, choking upper esophagus. Recommend EGD, possible biopsy, esophageal dilatation. Risks were explained in detail including but not limited to bleeding and infection; risk of bowel injury or perforation possibly requiring open procedure or transfer for stent placement; if no improvement in swallowing possibly requiring other procedures, dilators, or referrals; possible wound in the area of the dilator; possible neurologic or functional problem and dilatation might not benefit; if dilatation performed does improve swallowing, it might need to be repeated again down the road. All of the above explained in detail but not limited to. The patient agreed to proceed with EGD, possible biopsy with possible dilatation as an outpatient. Otherwise, continue medications for her hypertension.
[2023-11-13] MEDS ORDERED: Lactated Ringers 1,000 ML IV ONE (09:17)
[2023-11-13] MEDS: Lactated Ringers 1,000 ML IV SCH (09:21)
[2023-11-13 09:30] VITALS: RESP 16
[2023-11-13] MEDS ORDERED: Xylocaine-Mpf 2% 5 Ml Vial ONE (11:06)
[2023-11-13] MEDS ORDERED: DIPRIVAN 200 MG/20 ML IV ONE (11:06)
[2023-11-13 12:29] VITALS: BP 137/68; TEMP 97.9
[2023-11-13 12:38] VITALS: PULSE 61; O2SAT 100
--- NOTE | 2023-11-14 10:17 | OP ---
SURGERY DATE/TIME: 11/13/2023 1140 - 1155 PREOPERATIVE DIAGNOSIS: Dysphagia. POSTOPERATIVE DIAGNOSES: 1) Minimal, mild gastritis. 2) Short segment, single erosion, and distal esophagitis. 3) Proximal esophageal narrowing. DESCRIPTION OF PROCEDURE AND FINDINGS: Cold biopsy taken in the antrum for H pylori. Scope pulled back out of the distal esophagus. There is a small single erosion. Cold biopsy was taken of that for distal esophagitis. There was maybe a slight hiatal weakness without any significant hiatal hernia. In the proximal esophagus, there is no evidence of any mass or lesion to biopsy, though proximal esophagus did have narrowing and spasm. This is where she has been having problems with things going down. It was felt this warranted dilatation. Therefore, the scope passed back down into the stomach. A 20 balloon catheter carefully advanced down into the stomach. Pulled back up to proximal esophageal narrowed area. Balloon carefully inflated first stage 30 seconds, second stage 30 seconds, final stage size 20 balloon dilator was left inflated for 2 minutes. The balloon was then decompressed and withdrawn. The scope much more easily passed through the area back down into the stomach and carefully withdrawn. Good hemostasis noted. We evaluated the segment, seemed to be more widely patent. There was no evidence of any full-thickness issues or injury secondary to dilatation.
== END 2023-11-13 12:47 | disposition home or self-care (01) ==
LOC: SDC 09:13
PROVIDERS: ATTEND Surgery
DX: K29.70 Gastritis, unspecified, without bleeding (principal); R13.10 Dysphagia, unspecified; K20.90 Esophagitis, unspecified without bleeding; K22.2 Esophageal obstruction
CPT/HCPCS: 99100; C1726; J2704

== ENCOUNTER 2024-07-17 16:08 | Emergency (ER) | payer MEDICARE, SELFPAY ==
[2024-07-17 16:27] VITALS: TEMP 98.3
[2024-07-17 17:16] VITALS: PULSE 78; RESP 18; O2SAT 96
--- NOTE | 2024-07-17 17:22 | ERPHSYRPT ---
- History of Present Illness Source: patient, family Patient Subjective Stated Complaint: Pt fell almost a week ago and hit her head/nose/right wrist/right knee/right shoulder and has swelling to those areas and today she got into the hot tub and started feeling sick and so when she started to step out she got real light headed and almost passed out Triage Nursing Assessment: Pt brought to the ER by her friend, hypertensive, rates pain as 5/10, pulses normal, skin n/w/d, bruising to right knee, forehead, abrasion to nose, swelling to right wrist, denies chest pain, denies difficulty breathing, doesn't appear to be in any distress Physician History: Patient was sitting in a hot tub for a while. She said that she started feeling nauseated. She stood up and got lightheaded and sat back down. There is no syncope. She decided to come in and get evaluated for this. While she was here she went to get evaluated for a fall she had about a week ago. That was nonsyncopal she fell because she tripped. She has pain in her distal radius because she landed on outstretched arm and she landed on her right knee. There is little bit of bruising. She is able to ambulate without difficulty or pain.She had no chest pain or shortness of breath. She has had no more feelings of near syncope.She does not have a history of syncope or getting lightheaded. She did stand up quick after she had been in a hot tub. Allergies/Adverse Reactions: sulfamethoxazole [From Bactrim] Allergy (Verified 07/17/24 16:27) trimethoprim [From Bactrim] Allergy (Verified 07/17/24 16:27) oxycodone Adverse Reaction (Verified 07/17/24 16:27) Home Medications: Metoprolol Succinate 25 mg Xl* [Toprol-Xl 25MG Tablets] 25 mg PO HS 03/29/23 [History] Rosuvastatin Calcium 20 mg PO DAILY 07/17/24 [History] Hx Tetanus, Diphtheria Vaccination/Date Given: Yes Hx Influenza Vaccination/Date Given: Yes Hx Pneumococcal Vaccination/Date Given: Yes Travel Risk - International Travel Have you traveled outside of the country in past 3 weeks: No - Emerging Infectious Disease Are you exhibiting symptoms associated with any current EIDs: No - Review of Systems Constitutional: No Symptoms Eyes: No Symptoms Respiratory: No Symptoms Cardiac: No Symptoms, No Palpitations Abdominal/Gastrointestinal: No Symptoms Musculoskeletal: Other (Tenderness in right distal radius and right knee) Skin: No Symptoms Neurological: No Symptoms Psychological: No Symptoms - Past Medical History Pertinent Past Medical History: Yes Neurological History: No Pertinent History ENT History: Other Cardiac History: No Pertinent History Respiratory History: No Pertinent History Endocrine Medical History: No Pertinent History Musculoskeletal History: Osteoarthritis GI Medical History: No Pertinent History History: No Pertinent History Psycho-Social History: No Pertinent History Female Reproductive Disorders: No Pertinent History Other Medical History: CAROTID BLOCKAGES. - Past Surgical History Past Surgical History: Yes Neuro Surgical History: No Pertinent History Cardiac: Cardiac Catheterization Respiratory: No Pertinent History Gastrointestinal: Cholecystectomy Genitourinary: No Pertinent History Musculoskeletal: Joint Replacement, Orthopedic Surgery Female Surgical History: Other Other Surgical History: Pt has had a lumpectomy and a skin cancer removed from her left arm. knee surgery - Social History Smoking Status: Former smoker Exposure to second hand smoke: No Drug Use: none - Social Determinants of Health Will the patient participate in the screening: Yes Do you worry about a steady place to live?: No Do you have any problems with any of the following?: No known problems In the past 12 months,have you had to go without utilities?: No Transportation Issues: No Has anyone in your support network made you feel unsafe?: No Have you or anyone in your house had to go w/o enough food: No - Nursing Vital Signs Nursing Vital Signs: Initial Vital Signs Temperature 98.3 F 07/17/24 16:15 Pulse Rate 77 07/17/24 16:15 Respiratory Rate 16 07/17/24 16:15 Blood Pressure 159/96 07/17/24 16:15 O2 Sat by Pulse Oximetry 98 07/17/24 16:15 Pain Scale Pain Intensity 5 - Physical Exam General Appearance: no apparent distress Respiratory Exam: normal breath sounds, No chest tenderness Cardiovascular Exam: regular rate/rhythm, normal heart sounds Gastrointestinal/Abdomen Exam: soft, normal bowel sounds Extremity Exam: normal inspection, normal range of motion, other (Tenderness in the right distal radius no obvious deformities. Contusion on the right patella no obvious deformities full range of motion of the knee) Neurologic Exam: alert, oriented x 3 Skin Exam: normal color, warm SpO2: 96 - Course Nursing assessment & vital signs reviewed: Yes EKG Interpreted by Me: RATE, Sinus Rhythm, Right [place] Deviation, NORMAL INTERVALS, NORMAL QRS Ordered Tests: Active Orders 24 hr Category Date Time Status KNEE (1 OR 2 VIEW) Stat Exams 07/17/24 16:30 Completed WRIST (MIN 3 VIEWS) Stat Exams 07/17/24 16:30 Completed - Progress Progress: unchanged Progress Note: 07/17/24 17:22 Patient was stable throughout stay. I think that she just got near syncopal because she was sitting in a hot tub for a long period of time and then stood up. I do not think that there is anything to workup past that.As for her musculoskeletal complaints. X-rays of the wrist and knee were done there was no acute findings. 07/17/24 17:28 - Departure Departure Disposition: Home Clinical Impression: Near syncope Condition: Stable Critical Care Time: No Referrals: TRACE WALLACE [Primary Care Provider, UNKNOWN] - Follow up/PCP as directed
--- NOTE | 2024-07-17 17:23 | XRAY ---
Indication: Pain. Status post fall 4-5 days ago. Comparison: None 3 view right wrist demonstrates osteopenia and mild 1st metacarpal multangular degenerative changes. No other bony, articular, or soft tissue abnormalities.
--- NOTE | 2024-07-17 17:25 | XRAY ---
Indication: Pain. Status post fall 4-5 days ago. Comparison: None 2 view right knee demonstrates osteopenia and intact total knee arthroplasty. No other bony, articular, or soft tissue abnormalities.
[2024-07-17 18:02] VITALS: BP 138/70
== END 2024-07-17 18:00 | disposition home or self-care (01) ==
LOC: ED 16:08
DX: R55 Syncope and collapse (principal); M25.531 Pain in right wrist; M25.561 Pain in right knee; Z79.899 Other long term (current) drug therapy
CPT/HCPCS: 29130; 73110; 73560; 99283; 99284

== ENCOUNTER 2025-02-02 11:10 | Emergency (ER) | payer MEDICARE ==
[2025-02-02 11:30] VITALS: TEMP 98.3
--- NOTE | 2025-02-02 11:38 | ERPHSYRPT ---
- History of Present Illness Patient Subjective Stated Complaint: vomiting since this morning, headache and body aches since yesterday Triage Nursing Assessment: . 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, but she has more pain than normal, she states intermittently she has had a cough, she denies shortness of breath, denies abdominal pain, she any chest pain,denies vomiting Timing/Duration: day(s) (2) Associated Symptoms: cough Allergies/Adverse Reactions: sulfamethoxazole [From Bactrim] Allergy (Verified 02/02/25 12:52) trimethoprim [From Bactrim] Allergy (Verified 02/02/25 12:52) oxycodone Adverse Reaction (Verified 02/02/25 12:52) Home Medications: Metoprolol Succinate 25 mg Xl* [Toprol-Xl 25MG Tablets] 25 mg PO HS 03/29/23 [History] Rosuvastatin Calcium 20 mg PO DAILY 07/17/24 [History] Hx Tetanus, Diphtheria Vaccination/Date Given: Yes Hx Influenza Vaccination/Date Given: No Hx Pneumococcal Vaccination/Date Given: Yes Travel Risk - International Travel Have you traveled outside of the country in past 3 weeks: No - Emerging Infectious Disease Are you exhibiting symptoms associated with any current EIDs: No Symptoms: Cough: New Onset, Headaches/Body Aches/, Vomitting - Past Medical History Pertinent Past Medical History: Yes Neurological History: No Pertinent History ENT History: Other Cardiac History: No Pertinent History Respiratory History: No Pertinent History Endocrine Medical History: No Pertinent History Musculoskeletal History: Osteoarthritis GI Medical History: No Pertinent History History: No Pertinent History Psycho-Social History: No Pertinent History Female Reproductive Disorders: No Pertinent History Other Medical History: CAROTID BLOCKAGES. - Past Surgical History Past Surgical History: Yes Neuro Surgical History: No Pertinent History Cardiac: Cardiac Catheterization Respiratory: No Pertinent History Gastrointestinal: Cholecystectomy Genitourinary: No Pertinent History Musculoskeletal: Joint Replacement, Orthopedic Surgery Female Surgical History: Other Other Surgical History: Pt has had a lumpectomy and a skin cancer removed from her left arm. knee surgery - Social History Smoking Status: Former smoker Drug Use: none - Social Determinants of Health Do you worry about a steady place to live?: No Do you have any problems with any of the following?: No known problems In the past 12 months,have you had to go without utilities?: No Transportation Issues: No Has anyone in your support network made you feel unsafe?: No Have you or anyone in your house had to go w/o enough food: No - Nursing Vital Signs Nursing Vital Signs: Initial Vital Signs Temperature 98.3 F 02/02/25 11:25 Pulse Rate 77 02/02/25 11:25 Respiratory Rate 14 02/02/25 11:25 Blood Pressure 144/104 02/02/25 11:25 O2 Sat by Pulse Oximetry 97 02/02/25 11:25 Pain Scale Pain Intensity 3 - Physical Exam General Appearance: no apparent distress, alert Eye Exam: PERRL/EOMI, eyes nml inspection Ears, Nose, Throat Exam: normal ENT inspection, TMs normal, pharynx normal, moist mucous membranes Neck Exam: normal inspection, non-tender, supple, full range of motion Respiratory Exam: normal breath sounds, lungs clear, No respiratory distress Cardiovascular Exam: regular rate/rhythm, normal heart sounds, normal peripheral pulses Gastrointestinal/Abdomen Exam: soft, normal bowel sounds, No tenderness, No mass Back Exam: normal inspection, normal range of motion, No CVA tenderness, No vertebral tenderness Extremity Exam: normal inspection, normal range of motion, pelvis stable Neurologic Exam: alert, oriented x 3, cooperative, normal mood/affect, nml cerebellar function, nml station & gait, sensation nml, No motor deficits Skin Exam: normal color, warm, dry, No rash Lymphatic Exam: No adenopathy SpO2 Interpretation: normal SpO2: 97 Ordered Tests: Active Orders 24 hr Category Date Time Status EKG-ER Only STAT Care 02/02/25 11:28 Active IV Insertion STAT Care 02/02/25 11:28 Active CHEST 1 VIEW (PORTABLE) Stat Exams 02/02/25 11:29 Taken CBC W DIFF Stat Lab 02/02/25 11:40 Completed CMP Stat Lab 02/02/25 11:40 Completed CULTURE,URINE Stat Lab 02/02/25 11:45 Received Lactic Acid Stat Lab 02/02/25 11:49 Completed TROPONIN Q4H Lab 02/02/25 11:40 Completed TROPONIN Q4H Lab 02/02/25 15:30 Ordered TROPONIN Q4H Lab 02/02/25 19:30 Ordered UA W/RFX UR CULTURE Stat Lab 02/02/25 11:45 Completed Medication Summary Discontinued Medications Generic Name Dose Route Start Last Admin Trade Name Maykel PRAdam Reason Stop Dose Admin Acetaminophen 975 mg 02/02/25 11:28 02/02/25 11:53 Acetaminophen 325 Mg Tablet PO 02/02/25 11:29 975 mg STAT ONE Administration Acetaminophen Confirm 02/02/25 11:50 Acetaminophen 325 Mg Tablet Administered 02/02/25 11:51 Dose 975 mg .ROUTE .STK-MED ONE Sodium Chloride 500 mls @ 500 mls/hr 02/02/25 11:29 02/02/25 11:52 Sodium Chloride 0.9% 500 Ml IV 02/02/25 12:28 500 mls/hr .Q1H ONE Administration Sodium Chloride Confirm 02/02/25 11:50 Sodium Chloride 0.9% 500 Ml Administered 02/02/25 11:51 Dose 500 mls @ ud IV .STK-MED ONE Ceftriaxone Sodium 1 gm in 100 mls @ 200 mls/hr 02/02/25 12:24 02/02/25 12:48 Rocephin 1 Gm / 100 Ml Nacl IV 02/02/25 12:53 200 mls/hr STAT ONE 200 mls/hr Administration Ceftriaxone Sodium Confirm 02/02/25 12:47 Rocephin 1 Gm / 100 Ml Nacl Administered 02/02/25 12:48 Dose 1 gm in 100 mls @ ud IV .STK-MED ONE Ondansetron HCl 4 mg 02/02/25 12:45 02/02/25 12:48 Ondansetron Hcl 4 Mg/2 Ml Vial IV 02/02/25 12:46 4 mg STAT ONE Administration Ondansetron HCl Confirm 02/02/25 12:47 Ondansetron Hcl 4 Mg/2 Ml Vial Administered 02/02/25 12:48 Dose 4 mg .ROUTE .STK-MED ONE Lab/Rad Data: Laboratory Result Diagrams 02/02/25 11:40 02/02/25 11:40 Laboratory Results 02/02/25 02/02/25 02/02/25 Range/Units 11:49 11:45 11:40 WBC (3.98-10.04) x10^3/uL RBC (3.93-5.22) x10^6/uL Hgb (11.2-15.7) g/dL Hct (34.1-44.9) % MCV (79.4-94.8) fL MCH (25.6-32.2) pg MCHC (32.2-35.5) g/dL RDW (11.7-14.4) % Plt Count (182-369) x10^3/uL MPV (9.4-12.3) fL Gran % (34.0-71.1) % Immature Gran % (Auto) (0.001-0.429) % Nucleat RBC Rel Count (0.00-0.2) % Eos # (Auto) (0.04-0.36) x10^3/uL Immature Gran # (Auto) (0.001-0.031) x10^3u/L Absolute Lymphs (auto) (1.18-3.74) x10^3/uL Absolute Monos (auto) (0.24-0.86) x10^3/uL Absolute Nucleated RBC (0.00-0.012) x10^3u/L Lymphocytes % (19.3-51.7) % Monocytes % (4.7-12.5) % Eosinophils % (0.7-5.8) % Basophils % (0.1-1.2) % Absolute Granulocytes (1.56-6.13) x10^3/uL Basophils # (0.01-0.08) x10^3/uL Sodium (135-145) mmol/L Potassium (3.5-5.1) mmol/L Chloride (98-107) mmol/L Carbon Dioxide (22-30) mmol/L Anion Gap (5-15) MEQ/L BUN (7-17) mg/dL Creatinine (0.52-1.04) mg/dL Estimated GFR ML/MIN Glucose (74-106) mg/dL Lactic Acid 0.8 (0.4-2.0) Calcium (8.4-10.2) mg/dL Total Bilirubin (0.2-1.3) mg/dL AST (14-36) U/L ALT (0-35) U/L Alkaline Phosphatase (38-126) U/L Troponin I < 0.012 (0.000-0.033) ng/mL Serum Total Protein (6.3-8.2) g/dL Albumin (3.5-5.0) g/dL Urine Color Yellow (Yellow) Urine Appearance Turbid A (Clear) Urine pH 7.5 (4.6-8.0) Ur Specific [place] 1.020 (1.005-1.030) Urine Protein 300 A (Negative) Urine Glucose (UA) Negative (Negative) mg/dL Urine Ketones Negative (Negative) Urine Blood Moderate A (Negative) Urine Nitrite Negative (Negative) Urine Bilirubin Negative (Negative) Urine Urobilinogen 1.0 A (0.2) mg/dL Ur Leukocyte Esterase Large A (Negative) U Hyaline Cast (Auto) NONE SEEN (0-2) /LPF Urine Microscopic RBC 51-100 A (0-5) /HPF Urine Microscopic WBC >100 A (0-5) /HPF Ur Epithelial Cells None Seen (None Seen) /HPF Urine Bacteria Many A (None Seen) /HPF Urine Culture Reflexed YES (NO) 02/02/25 02/02/25 Range/Units 11:40 11:40 WBC 10.4 H (3.98-10.04) x10^3/uL RBC 4.03 (3.93-5.22) x10^6/uL Hgb 12.8 (11.2-15.7) g/dL Hct 38.5 (34.1-44.9) % MCV 95.5 H (79.4-94.8) fL MCH 31.8 (25.6-32.2) pg MCHC 33.2 (32.2-35.5) g/dL RDW 12.6 (11.7-14.4) % Plt Count 212 (182-369) x10^3/uL MPV 9.8 (9.4-12.3) fL Gran % 75.1 H (34.0-71.1) % Immature Gran % (Auto) 0.3 (0.001-0.429) % Nucleat RBC Rel Count 0.0 (0.00-0.2) % Eos # (Auto) 0.08 (0.04-0.36) x10^3/uL Immature Gran # (Auto) 0.03 (0.001-0.031) x10^3u/L Absolute Lymphs (auto) 1.77 (1.18-3.74) x10^3/uL Absolute Monos (auto) 0.67 (0.24-0.86) x10^3/uL Absolute Nucleated RBC 0.00 (0.00-0.012) x10^3u/L Lymphocytes % 17.1 L (19.3-51.7) % Monocytes % 6.5 (4.7-12.5) % Eosinophils % 0.8 (0.7-5.8) % Basophils % 0.2 (0.1-1.2) % Absolute Granulocytes 7.78 H (1.56-6.13) x10^3/uL Basophils # 0.02 (0.01-0.08) x10^3/uL Sodium 138 (135-145) mmol/L Potassium 4.1 (3.5-5.1) mmol/L Chloride 107 (98-107) mmol/L Carbon Dioxide 25 (22-30) mmol/L Anion Gap 11.0 (5-15) MEQ/L BUN 15 (7-17) mg/dL Creatinine 0.94 (0.52-1.04) mg/dL Estimated GFR 63.3 ML/MIN Glucose 114 H (74-106) mg/dL Lactic Acid (0.4-2.0) Calcium 9.0 (8.4-10.2) mg/dL Total Bilirubin 0.40 (0.2-1.3) mg/dL AST 26 (14-36) U/L ALT 18 (0-35) U/L Alkaline Phosphatase 65 (38-126) U/L Troponin I (0.000-0.033) ng/mL Serum Total Protein 6.8 (6.3-8.2) g/dL Albumin 4.2 (3.5-5.0) g/dL Urine Color (Yellow) Urine Appearance (Clear) Urine pH (4.6-8.0) Ur Specific [place] (1.005-1.030) Urine Protein (Negative) Urine Glucose (UA) (Negative) mg/dL Urine Ketones (Negative) Urine Blood (Negative) Urine Nitrite (Negative) Urine Bilirubin (Negative) Urine Urobilinogen (0.2) mg/dL Ur Leukocyte Esterase (Negative) U Hyaline Cast (Auto) (0-2) /LPF Urine Microscopic RBC (0-5) /HPF Urine Microscopic WBC (0-5) /HPF Ur Epithelial Cells (None Seen) /HPF Urine Bacteria (None Seen) /HPF Urine Culture Reflexed (NO) - Progress Progress Note: 02/02/25 13:20 Discussed labs and results, patient given Rocephin 1 g IV piggyback, she was given Zofran as an antiemetic, clinically she is improved, she will be discharged home with follow-up on an outpatient basis - Departure Departure Disposition: Home Clinical Impression: Acute UTI Condition: Stable Critical Care Time: No Referrals: TRACE WALLACE [Primary Care Provider, UNKNOWN] - Follow up PCP 10 days Instructions: Urinary tract infection in adults - ED discharge instructions Prescriptions: [id number] [Cefadroxil] 500 mg PO BID #14 cap
[2025-02-02 11:48] LABS: BASOPHIL % 0.2 % (0.1-1.2); Basophil (Absolute #) 0.02 x10^3/uL (0.01-0.08); Eosinophil (Absolute #) 0.08 x10^3/uL (0.04-0.36); Hematocrit 38.5 % (34.1-44.9); Hemoglobin 12.8 g/dL (11.2-15.7); IMMATURE GRAN # 0.03 x10^3u/L (0.001-0.031); IMMATURE GRAN % 0.3 % (0.001-0.429); Lymphocyte (Absolute #) 1.77 x10^3/uL (1.18-3.74); Mean Corpuscular Hemoglobin 31.8 pg (25.6-32.2); Mean Corpuscular Hgb Concent. 33.2 g/dL (32.2-35.5); Monocyte (Absolute #) 0.67 x10^3/uL (0.24-0.86); NUCLEATED RBC # 0.00 x10^3u/L (0.00-0.012); NUCLEATED RBC % 0.0 % (0.00-0.2); Platelet Count 212 x10^3/uL (182-369); Red Blood Count 4.03 x10^6/uL (3.93-5.22); White Blood Count 10.4 x10^3/uL (3.98-10.04)
[2025-02-02] MEDS ORDERED: TYLENOL 325 MG ONE (11:50)
[2025-02-02] MEDS: TYLENOL 325 MG PO ONE (11:53)
[2025-02-02 11:55] LABS: Glucose, Urine Negative (Negative); Protein,Urine Dip 300 (Negative); RBC 51-100 /HPF (0-5); WBC >100 /HPF (0-5)
[2025-02-02 12:07] LABS: Calcium 9.0 mg/dL (8.4-10.2); Carbon Dioxide 25.0 mmol/L (22-30); Creatinine 1 0.94 mg/dL (0.52-1.04); EST GLOMERULAR FILTRATION RATE 63.3 ML/MIN; Glucose 114.0 mg/dL (74-106); Potassium 4.1 mmol/L (3.5-5.1); SGOT/AST 26.0 U/L (14-36); SGPT/ALT 18.0 U/L (0-35); Total Protein 6.8 g/dL (6.3-8.2)
[2025-02-02 12:46] VITALS: PULSE 68; O2SAT 97
[2025-02-02] MEDS ORDERED: Zofran 4 MG/2 ML VIAL ONE (12:47)
[2025-02-02] MEDS ORDERED: ROCEPHIN 1 GM / 100 ML NaCl 1 GM/100 ML IVPB IV ONE (12:47)
[2025-02-02] MEDS: ROCEPHIN 1 GM / 100 ML NaCl 1 GM/100 ML IVPB IV ONE (12:48)
[2025-02-02] MEDS: Zofran 4 MG/2 ML VIAL IV ONE (12:48)
[2025-02-02 13:43] VITALS: BP 120/77; RESP 19
--- NOTE | 2025-02-02 19:08 | XRAY ---
Indication: Cough. Comparison: August 08, 2019 Portable apical lordotic chest again hyperinflated and clear. Heart not enlarged again with small left hilar calcified node. Bony thorax intact with osteopenia and incidental left chest loop recorder Impression: Continued nonacute chest with chronic features.
== END 2025-02-02 13:40 | disposition home or self-care (01) ==
LOC: ED 11:10
DX: N39.0 Urinary tract infection, site not specified (principal); M79.10 Myalgia, unspecified site; R05.9 Cough, unspecified; Z79.899 Other long term (current) drug therapy

== ENCOUNTER 2025-02-09 00:02 | Emergency (ER) | payer MEDICARE ==
[2025-02-09 00:14] VITALS: TEMP 97.9
--- NOTE | 2025-02-09 00:16 | ERPHSYRPT ---
- History of Present Illness Time Seen by Provider: 02/09/25 00:08 Source: patient, EMS Exam Limitations: no limitations Patient Subjective Stated Complaint: 74-year-old female was stepping out of the shower and slipped and fell on her right hip. Denies loss of conscious. Denies head injury. States she is having pain in her right hip. EMS reports patient was ambulatory at the scene. Denies any other injuries. States pain radiates from her hip a little bit into her lower back. Occurred: just prior to arrival Reason for Fall: slipped Injuries/Pain Location: lower extremity Loss of Consciousness: no loss of consciousness Quality: aching Severity of Pain-Max: mild Modifying Factors: Improves With: movement Associated Symptoms (Fall): No denies symptoms, No chest pain, No dizziness, No muscle spasms, No shortness of breath, No trouble walking Allergies/Adverse Reactions: sulfamethoxazole [From Bactrim] Allergy (Verified 02/09/25 00:04) trimethoprim [From Bactrim] Allergy (Verified 02/09/25 00:04) oxycodone Adverse Reaction (Verified 02/09/25 00:04) Home Medications: Metoprolol Succinate 25 mg Xl* [Toprol-Xl 25MG Tablets] 25 mg PO HS 03/29/23 [History] Rosuvastatin Calcium 20 mg PO DAILY 07/17/24 [History] Hx Tetanus, Diphtheria Vaccination/Date Given: Yes Hx Influenza Vaccination/Date Given: No Hx Pneumococcal Vaccination/Date Given: Yes Travel Risk - Emerging Infectious Disease Are you exhibiting symptoms associated with any current EIDs: No Symptoms: Cough: New Onset, Headaches/Body Aches/, Vomitting - Review of Systems Constitutional: No Fever, No Chills Eyes: No Symptoms Ears, Nose, & Throat: No Symptoms, Other (Patient has bilateral hearing aids) Respiratory: No Cough, No Dyspnea Cardiac: No Chest Pain, No Edema, No Syncope Abdominal/Gastrointestinal: No Abdominal Pain, No Nausea, No Vomiting, No Diarrhea Genitourinary Symptoms: No Dysuria Musculoskeletal: Fall, Joint Pain (Right hip pain.) Skin: No Rash Neurological: No Dizziness, No Focal Weakness, No Sensory Changes Psychological: No Symptoms Endocrine: No Symptoms - Past Medical History Pertinent Past Medical History: Yes Neurological History: No Pertinent History ENT History: Other Cardiac History: No Pertinent History Respiratory History: No Pertinent History Endocrine Medical History: No Pertinent History Musculoskeletal History: Osteoarthritis GI Medical History: No Pertinent History History: No Pertinent History Psycho-Social History: No Pertinent History Female Reproductive Disorders: No Pertinent History Other Medical History: CAROTID BLOCKAGES. - Past Surgical History Past Surgical History: Yes Neuro Surgical History: No Pertinent History Cardiac: Cardiac Catheterization Respiratory: No Pertinent History Gastrointestinal: Cholecystectomy Genitourinary: No Pertinent History Musculoskeletal: Joint Replacement, Orthopedic Surgery Female Surgical History: Other Other Surgical History: Pt has had a lumpectomy and a skin cancer removed from her left arm. knee surgery - Social History Smoking Status: Former smoker Drug Use: none - Social Determinants of Health Do you worry about a steady place to live?: No In the past 12 months,have you had to go without utilities?: No Transportation Issues: No Has anyone in your support network made you feel unsafe?: No Have you or anyone in your house had to go w/o enough food: No - Nursing Vital Signs Nursing Vital Signs: Initial Vital Signs Temperature 97.9 F 02/09/25 00:06 Pulse Rate 79 02/09/25 00:06 Respiratory Rate 17 02/09/25 00:06 Blood Pressure 130/96 02/09/25 00:06 O2 Sat by Pulse Oximetry 95 02/09/25 00:06 Pain Scale Pain Intensity 2 - Gonsalo Coma Score Best Eye Response (Gonsalo): (4) open spontaneously Best Verbal Response (Newton): (5) oriented Best Motor Response (Gonsalo): (6) obeys commands [place] Total: 15 - Physical Exam General Appearance: no apparent distress, alert Head Injury: no evidence of injury Eye Exam: PERRL/EOMI ENT Exam: airway nml Neck Exam: normal inspection, No tenderness Respiratory/Chest Exam: normal breath sounds, No chest tenderness, No respiratory distress Cardiovascular Exam: normal heart sounds, regular rate/rhythm Gastrointestinal Exam: soft, No tenderness, No distention, No guarding, No ecchymosis Back Exam: normal inspection, No vertebral tenderness Extremity Exam: capillary refill <3 sec, pain with movement, other (Patient notes some mild diffuse tenderness to palpation around the right hip. Has some mild decrease in hip flexion secondary to pain. No erythema or other swelling appreciated.), No deformities, No inflammation, No motor deficit, No sensory deficit Neurologic Exam: alert, oriented x 3, cooperative, sensation nml, No motor deficits Skin Exam: normal color, warm, dry SpO2 Interpretation: normal - CT Exams Right Lower Extremity CT Interpretation: No Fracture (CT right hip no acute findings noted.) Ordered Tests: Active Orders 24 hr Category Date Time Status LOWER EXTREMITY WO CONTRAST [CT] Stat Exams 02/09/25 00:11 Completed - Progress Progress Note: 02/09/25 01:31 CT report was negative. I will reevaluate the patient. Denies any pain when standing or sitting. However does complain of some mild discomfort in the right inguinal area when she ambulates with a mild antalgic limp. Denies numbness tingling. Denies back pain. Patient otherwise tolerating movement of the hip and ambulation well. Medical decision making: No fracture or dislocation noted on CT. Clinically no dislocation appreciated. Neurovascularly intact. No back pain noted. Complexity of problem is low to moderate secondary to hip back pain from fall amount of complexity is limited to moderate requiring CT imaging and no signs of infection. No loss of consciousness. Risk of complications low to moderate as concern for potential surgical intervention requiring hip fixation secondary to fracture which is not noted. Patient signed here to give patient a ride. Informed patient home treatment management strategies including ice heat Tylenol Motrin as needed. - Departure Departure Disposition: Home Clinical Impression: Fall, Contusion of right hip, Acute right hip pain Condition: Stable Critical Care Time: No Referrals: TRACE WALLACE [Primary Care Provider, UNKNOWN] - Follow up/PCP as directed Additional Instructions: Discharge/Care Plan RAOUL RENTERIA was seen on 02/09/25 in the Emergency Room. The patient was counseled regarding Diagnosis,Lab results, Imaging studies, need for follow up and when to return to the Emergency Room. Prescriptions given: Discharge Note I have spoken with the patient and/or caregivers. I have explained the patient's condition, diagnosis and treatment plan based on the information available to me at this time. I have answered the patient's and/or caregiver's questions and addressed any concerns. The patient and/or caregivers have as good understanding of the patient's diagnosis, condition and treatment plan as can be expected at this point. The vital signs have been stable. The patient's condition is stable and appropriate for discharge from the emergency department. The patient will pursue further outpatient evaluation with the primary care billy hammonds or other designated or consulting physician as outlined in the discharge instructions. The patient and/or caregivers are agreeable to this plan of care and follow-up instructions have been explained in detail. The patient and/or caregivers have received these instruction. The patient/and or caregivers are aware that any significant change in condition or worsening of symptoms should prompt an immediate return to this or the closest emergency department or call 911. Use ice and heat as needed Consider Tylenol Motrin as needed for pain. Follow-up with your primary care insurance underwriter sales this week for reevaluation if continued pain Return to the ED if numbness, tingling, unable to walk, bowel or bladder changes, worsening, or further concerns
[2025-02-09 01:09] VITALS: O2SAT 98
--- NOTE | 2025-02-09 01:28 | XRAY ---
CLINICAL HISTORY: right hip pain s/p fall COMPARISON: None. TECHNIQUE: Contiguous axial CT images of right lower extremity were obtained without intravenous contrast. Coronal and sagittal reconstructions were likewise performed and indicated to increase the sensitivity for detecting clinically relevant pathology. CT scan was performed according to ALARA (as low as reasonably achievable). FINDINGS: No acute fracture or dislocation. No destructive osseous lesion. The visualized muscles and tendons appear grossly unremarkable. No cortical destruction to suggest osteomyelitis. No abscess formation. No significant joint effusion. There are no soft tissue masses. Normal subcutaneous adipose space. IMPRESSION: No significant abnormality detected Electronically Signed by: Nigel Lino MD. (02/09/2025 01:25:54 EST)
[2025-02-09 01:34] VITALS: BP 173/90; PULSE 72; RESP 18
== END 2025-02-09 01:41 | disposition home or self-care (01) ==
LOC: ED 00:02
DX: S70.01XA Contusion of right hip, initial encounter (principal); W18.2XXA Fall in (into) shower or empty bathtub, initial encounter; Y93.E1 Activity, personal bathing and showering; Y92.002 Bathroom of unspecified non-institutional (private) residence as the place of occurrence of the external cause; M25.551 Pain in right hip; Z79.899 Other long term (current) drug therapy